=== PATIENT | male | born 1990 ===

== ENCOUNTER 2020-11-22 14:10 | Day surgery (SDC) | payer OTHER ==
[~2020-11-22] VITALS: Ht 182.9 cm; Wt 77.9 kg
[2020-11-22] MEDS ORDERED: ZOLOFT 50MG50 MG PO (14:50)
[2020-11-22] MEDS ORDERED: NORCO 325 MG-51 TAB PO (14:51)
[2020-11-22] MEDS ORDERED: ZOFRAN ODT4 MG PO (14:51)
[2020-11-22 15:02] VITALS: BP 122/64; PULSE 67; TEMP 98.4
--- NOTE | 2020-11-22 15:06 | NUR ---
Patient rolling around on the cart and complains of pain at 7/10. Jean Paul [employer] notified for pain medication orders.
--- NOTE | 2020-11-22 15:09 | NUR ---
50 MG IV FENTANYL GIVEN FOR PAIN. HOLDING THE LEFT SIDE. WILL CONTINUE TO MONITOR.
[2020-11-22 17:25] VITALS: BP 109/59; PULSE 55; TEMP 98.2
--- NOTE | 2020-11-22 17:27 | NUR ---
Patient to room from PACU via bed. Alert and oriented x4. Denies pain at this time. Oriented to room and process to be discharged. Urinal provided. Patient denies additional needs at this time.
[2020-11-22 17:34] VITALS: TEMP 98.5
[2020-11-22 17:40] VITALS: BP 108/61; PULSE 50
[2020-11-22 17:55] VITALS: BP 103/58; PULSE 55
[2020-11-22 18:10] VITALS: BP 107/54; PULSE 56
--- NOTE | 2020-11-22 19:45 | NUR ---
Pt. sitting up in bed at this time. Pt. is A&OX3, assessment complete. INT to lt. hand patent. Pt. reports pain at a 2 on pain scale. Pt. denies further needs.
--- NOTE | 2020-11-22 20:15 | NUR ---
Pt. has met criteria for discharge. INT discontinued from lt. hand. Pt. given discharge paperwork. Instructions reviewed with pt. Informed pt. about calling to set up follow up appointment. Pt. verbalizes understanding. Pt. getting dressed and will call when ride arrives.
--- NOTE | 2020-11-22 20:30 | NUR ---
Pt. escorted out by IHSAN Serrano.
== END 2020-11-22 20:30 | disposition home or self-care (01) ==
LOC: SDCO 14:10 → SURG 17:19 → SDCO 20:30
DX: N20.1 Calculus of ureter (principal); F17.210 Nicotine dependence, cigarettes, uncomplicated; Z20.822 Contact with and (suspected) exposure to COVID-19; Z79.899 Other long term (current) drug therapy
CPT/HCPCS: OP; C1769; C2617; J0690; J1100; J1885; J1940; J2250; J2405; J2704; J3010; J7120; Q9967